=== PATIENT | male | born 1970 | race Caucasian/White ===

== ENCOUNTER 2016-11-14 21:24 | Emergency (ER) | payer MEDICAID ==
[~2016-11-14] VITALS: Ht 167.6 cm; Wt 79.3 kg
[2016-11-14] MEDS ORDERED: TOPI200T25 PO (21:36)
[2016-11-14] MEDS ORDERED: TAMS-11 PO (21:36)
[2016-11-14] MEDS ORDERED: LORazepam 1MG TABLET ONE (21:40)
[2016-11-14] MEDS ORDERED: TOPIRAMATE 100 MG TABLET PO ONE (22:00)
[2016-11-14] MEDS ORDERED: LORazepam 1MG TABLET PO ONE (22:00)
[2016-11-14 22:12] LABS: HEMATOCRIT 37.4 % (39.2-51.8); HEMOGLOBIN 12.4 g/dL (13.7-18.0); WHITE BLOOD COUNT 7.9 x10^3/uL (3.4-10)
[2016-11-14 22:21] LABS: BLOOD UREA NITROGEN 17 mg/dL (7-18)
[2016-11-14 23:39] VITALS: BP 108/62
== END 2016-11-14 23:44 | disposition home or self-care (01) ==
LOC: ED 23:40
DX: G40.409 Other generalized epilepsy and epileptic syndromes, not intractable, without status epilepticus (principal); G44.219 Episodic tension-type headache, not intractable
CPT/HCPCS: 36415; 80048; 80307; 82040; 85025; 99284